=== PATIENT | female | born 1995 | race Caucasian/White ===

== ENCOUNTER 2018-10-06 10:41 | Emergency (ER) | payer OTHER ==
[2018-10-06 11:14] VITALS: BP 137/97
[2018-10-06 11:24] LABS: ABSOLUTE LYMPHOCYTES (AUTO) 2.2 10^3/uL (0.5-4.7); ABSOLUTE MONOCYTES (AUTO) 0.3 10^3/uL (0.1-1.4); ABSOLUTE NEUT (AUTO) 5.8 10^3/uL (1.7-8.2); BASOPHILS % (AUTO) 0.6 % (0-2); EOSINOPHILS % (AUTO) 0.3 % (0-6); HEMATOCRIT 47.3 % (36.0-47.0); HEMOGLOBIN 16.8 g/dL (12.0-15.5); LYMPHOCYTES % (AUTO) 26.6 % (13-45); MEAN CORPUSCULAR HEMOGLOBIN 32.2 pg (27.0-33.4); MEAN CORPUSCULAR HGB CONC 35.5 g/dL (32.0-36.0); MEAN CORPUSCULAR VOLUME 91 fl (80-97); MONOCYTES % (AUTO) 3.8 % (3-13); PLATELET COUNT 241 10^3/uL (150-450); RED BLOOD COUNT 5.22 10^6/uL (3.72-5.28); RED CELL DISTRIBUTION WIDTH 12.7 % (11.5-14.0); SEGMENTED NEUTROPHILS % (AUTO) 68.7 % (42-78); TOTAL CELLS COUNTED % (AUTO) 100 %; WHITE BLOOD COUNT 8.4 10^3/uL (4.0-10.5)
[2018-10-06 11:27] LABS: APPEARANCE,URINE SLIGHTLY-CLOUDY; BILIRUBIN,URINE NEGATIVE (NEGATIVE); COLOR,URINE YELLOW; GLUCOSE, URINE NEGATIVE (NEGATIVE); KETONES,URINE NEGATIVE (NEGATIVE); LEUKOCYTE ESTERASE,URINE TRACE (NEGATIVE); NITRITE,URINE NEGATIVE (NEGATIVE); PROTEIN,URINE 30 mg/dL (NEGATIVE); UROBILINOGEN,URINE NEGATIVE mg/dL (<2.0)
--- NOTE | 2018-10-06 11:27 | ER Document Report ---
ED General - General Chief Complaint: Probable Seizure Stated Complaint: SYNCOPE Time Seen by Provider: 10/06/18 10:54 TRAVEL OUTSIDE OF THE [place] IN LAST 30 DAYS: No - HPI Notes: Patient presents to the emergency department for evaluation. Evidently she had a witnessed syncope versus seizure in the ICU while observing a central line placement. She states she is not normally bothered by blood. She has seen these in the past. She states she did eat breakfast this morning. Currently has no pain complaints, no concerns. No recent head injuries. States she sees, speaks, swallows without difficulty. Moving arms and legs without difficulty. 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 She had been on medications but they were "making me s uicidal." She has not been on any medication since then and is not had a seizure since then. Past Medical History - General Information source: Patient - Social History Smoking Status: Never Smoker Chew tobacco use (# tins/day): No Frequency of alcohol use: Occasional Drug Abuse: None Family History: Reviewed & Not Pertinent Patient has suicidal ideation: No Patient has homicidal ideation: No Neurological Medical History: Reports: Hx Seizures - Last seizure 2013 Renal/ Medical History: Reports: Hx Kidney Stones. Denies: Hx Peritoneal Dialysis Review of Systems - Review of Systems Constitutional: No symptoms reported EENT: No symptoms reported Cardiovascular: No symptoms reported Respiratory: No symptoms reported Gastrointestinal: No symptoms reported Musculoskeletal: No symptoms reported Skin: No symptoms reported Hematologic/Lymphatic: No symptoms reported Physical Exam - Vital signs Vitals: Resp 9 L 10/06/18 10:46 Notes: Vital signs reviewed on telemetry. Heart rate 76, respiratory rate 12 and nonlabored. Afebrile. - Notes Notes: Vital signs reviewed, please refer to chart. Patient is normocephalic, atraumatic. No tenderness. Pupils equal round, reactive to light. Neck is santana pple without meningismus. No paraspinal musculature tenderness, no midline cervical spine tenderness. Heart is regular rate and rhythm. Lungs are clear to auscultation bilaterally. Abdomen is soft, nontender, normoactive bowel sounds throughout. Extremities without cyanosis, clubbing, edema. Peripheral pulses are equal. Skin is warm and dry. Patient is awake, alert, oriented x3. Cranial nerves II through XII are grossly intact without focal neurological deficits. Strength is plus 5 out of 5 bilateral upper and lower extremities. Intact finger nose finger, rapid alternating movements, heel to heart. Reflexes are symmetrical. Course - Re-evaluation Re-evalutation: 10/06/18 11:27 Patient presents emergency department for evaluation of syncope versus seizure. She does have a long time history of seizure, but these are grand mal. Her presentation does not seem consistent with that. I find it more likely to be syncope, but the patient was given seizure precautions. Absolutely no driving until cleared. She voiced understanding to this. Seizure precautions were placed. Her EKG was ordered and found to be negative. Blood work pending, we will reevaluate. 10/06/18 13:25 Patient remained stable. Neurologically she remained intact. Laboratory investigations were remarkably only for a possible positive opiate screen. Certainly, however, this did not can contribute to her syncopal/seizure episode this morning. We will discharge the patient to follow-up with primary care. She is to return to the ED with worsening or new concerning symptoms. - Vital Signs Vital signs: Temp Pulse Resp BP Pulse Ox 98.4 F 20 137/97 H 100 10/06/18 11:14 10/06/18 12:00 10/06/18 10:47 10/06/18 12:00 - Laboratory Result Diagrams: 10/06/18 10:50 10/06/18 10:50 Laboratory results interpreted by me: 10/06/18 10/06/18 10/06/18 10:50 10:50 10:50 Hgb 16.8 H Hct 47.3 H Potassium 3.5 L Glucose 117 H Calcium 11.8 H Total Protein 8.6 H Albumin 5.3 H Urine Protein 30 H Ur Leukocyte Esterase TRACE H Urine Ascorbic Acid 40 H - EKG Interpretation by Me Additional EKG results interpreted by me: 10/06/18 11:28 Sinus mechanism, rate of 77 bpm. Normal axis and intervals, no acute ST changes concerning for ischemia or infarction. Discharge - Discharge Clinical Impression: Seizure, Syncope Condition: Stable Instructions: New Seizure ([facility]), Syncopal Episode ([facility]) Additional Instructions: It is unclear whether you simply passed out or had seizure activity. Absolutely no driving until cleared by primary care. If you have another episode, or any other new or return immediately to the emergency department for reevaluation.
[2018-10-06 11:45] LABS: ALANINE AMINOTRANSFERASE 14 U/L (9-52); ALBUMIN 5.3 g/dL (3.5-5.0); ALKALINE PHOSPHATASE 51 U/L (38-126); ANION GAP 17 (5-19); ASPARTATE AMINO TRANSFERASE 22 U/L (14-36); BILIRUBIN,DIRECT 0.2 mg/dL (0.0-0.4); BILIRUBIN,TOTAL 0.8 mg/dL (0.2-1.3); BLOOD UREA NITROGEN 19 mg/dL (7-20); CALCIUM 11.8 mg/dL (8.4-10.2); CARBON DIOXIDE 24 mmol/L (22-30); CHLORIDE 99 mmol/L (98-107); GLUCOSE 117 mg/dL (75-110); POTASSIUM 3.5 mmol/L (3.6-5.0); SODIUM 139.6 mmol/L (137-145); TOTAL PROTEIN 8.6 g/dL (6.3-8.2)
[2018-10-06 12:56] LABS: URINE AMPHETAMINES SCREEN NEGATIVE; URINE BARBITURATES SCREEN NEGATIVE; URINE BENZODIAZEPINES SCREEN NEGATIVE; URINE COCAINE SCREEN NEGATIVE; URINE MARIJUANA (THC) SCREEN NEGATIVE; URINE METHADONE SCREEN NEGATIVE; URINE PHENCYCLIDINE SCREEN NEGATIVE
--- NOTE | 2018-10-06 19:14 | EKG REPORT ---
SEVERITY:- NORMAL ECG - SINUS RHYTHM : Confirmed by: Kaitlin Jacobson MD 06-Oct-2018 19:14:02
== END 2018-10-06 13:43 | disposition home or self-care (01) ==
LOC: ER 10:41
DX: R55 Syncope and collapse (principal); R56.9 Unspecified convulsions
CPT/HCPCS: 36415; 80053; 80307; 81001; 81025; 85025; 93005; 93010; 99284

== ENCOUNTER → 2018-11-11 | Outpatient (CLI) | payer OTHER ==
--- NOTE | 2018-11-11 17:24 | NEURO WORKBENCH EEG REPORT ---
Patient: Manju King ID:[id number] Referring Doctor: Seven Corona MD DOS: 11/11/2018 Medications: Hydrochlorothiazide, Junel FC History This is a 23 year old right-handed woman with a history of hypertension, kidney stones and seizures since age 8. Her last seizure was a month ago. Her last EEG was 5 [place] ago in [place]. This EEG was requested for seizures. EEG Interpretation This EEG was recorded in the awake, drowsy, and sleep states. The awake EEG is characterized by a well organized background with a well developed and reactive PDR of 9.5 Hz. There was prominent mu present, mostly on the right but also on the left. Drowsiness is characterized by slowing of the background rhythms. Rhythmic temporal theta of drowsiness (psychomotor variant) was present. Vertex waves and sleep spindles were seen in the midline head regions. Photic stimulation resulted in a good driving response. Hyperventilation was not performed. There were some sharply contoured waveforms in the right temporal region (at T6) but no definite epileptiform abnormalities were noted. The EKG showed periods of an irregular rhythm. EEG Classification EKG irregular rhythm EEG Impression This EEG is normal in the awake, drowsy, and sleep states. There were no epileptiform abnormalities noted. The EKG showed periods of an irregular rhythm that may require further investigation. Interpreting Neurologist: Molly Lopez MD [facility]
== END ==
LOC: NEURO 12:49
PROVIDERS: ATTEND Pediatrics
DX: G40.309 Generalized idiopathic epilepsy and epileptic syndromes, not intractable, without status epilepticus (principal); R55 Syncope and collapse; R01.2 Other cardiac sounds
CPT/HCPCS: 95819